=== PATIENT | male | born 1995 ===

== ENCOUNTER 2018-05-01 18:22 | Emergency (ER) | payer SELFPAY ==
[2018-05-01 18:32] VITALS: PULSE 90; RESP 18
[2018-05-01 19:17] LABS: BASO % 0.6 % (0.0-2.0); EOS % 0.7 % (0.0-4.0); HEMOGLOBIN 16.7 g/dL (12.0-18.0); LYMPH # 1.8 K/uL (1.0-4.3); LYMPH % 26.2 % (20.0-40.0); MEAN CORPUSCULAR HEMOGLOBIN 28.4 pg (27.0-31.0); MEAN CORPUSCULAR HGB CONC 33.4 g/dL (33.0-37.0); MONO # 0.5 K/uL (0.0-0.8); MONO % 7.7 % (0.0-10.0); NEUT # 4.4 K/uL (1.8-7.0); NEUT % 64.8 % (50.0-75.0); NRBC % 0.2 % (0.0-2.0); RBC 5.87 Mil/uL (4.40-5.90); RED CELL DISTRIBUTION WIDTH 13.9 % (11.5-14.5); WHITE BLOOD COUNT 6.7 K/uL (4.8-10.8)
--- NOTE | 2018-05-01 19:22 | C.PDOC ---
History Of Present Illness Patient is a 23 y/o male who presents to the ED for evaluation of weakness and numbness to the left side of his face that began in the morning. He has no associated headache, joint pain, fever, chills, rash, or other neurological def icits. Time Seen by Provider: 05/01/18 18:44 Chief Complaint (Nursing): Weakness/Neurological Deficit History Per: Patient History/Exam Limitations: no limitations Onset/Duration Of Symptoms: Hrs Current Symptoms Are (Timing): Still Present Fall Associated With With Symptoms: No Recent travel outside of the [place]: No Additional History Per: Patient Past Medical History Reviewed: Historical Data, Nursing Documentation, Vital Signs Vital Signs: Last Vital Signs Temp 97.3 F L 05/01/18 18:30 Pulse 90 05/01/18 18:30 Resp 18 05/01/18 18:30 BP 167/83 H 05/01/18 18:30 Pulse Ox 99 05/01/18 18:30 - Medical History PMH: No Chronic Diseases Surgical History: No Surg Hx Family History: States: Unknown Family Hx - Social History Hx Alcohol Use: Yes Hx Substance Use: No - Immunization History Hx Tetanus Toxoid Vaccination: No Hx Influenza Vaccination: No Hx Pneumococcal Vaccination: No Review Of Systems Constitutional: Negative for: Fever, Chills Musculoskeletal: Negative for: Other (joint pain) Skin: Negative for: Rash Neurological: Positive for: Numbness (left side of face ), Headache Physical Exam - Physical Exam Appears: Non-toxic, No Acute Distress Skin: Normal Color, Warm, Dry Head: Atraumatic, Normacephalic Eye(s): bilateral: Normal Inspection Oral Mucosa: Moist Neck: Supple Chest: Symmetrical, No Deformity, No Tenderness Cardiovascular: Rhythm Regular, No Murmur Respiratory: Normal Breath Sounds, No Rales, No Rhonchi, No Wheezing Extremity: Normal ROM, Capillary Refill (less than 2 seconds ) Neurological/Psych: Oriented x3, Normal Speech, Normal Cognition Other Neurological Findings: Facial Palsy (left side of face including forehead) ED Course And Treatment - Laboratory Results Result Diagrams: 05/01/18 19:14 05/01/18 19:14 Lab Interpretation: No Acute Changes O2 Sat by Pulse Oximetry: 99 (on RA) Pulse Ox Interpretation: Normal - CT Scan/US CT head Other Rad Studies (CT/US): Read By Radiologist, Radiology Report Reviewed CT/US Interpretation: EXAM: CT Head without Intravenous Contrast. CLINICAL HISTORY: Left sided weakness. TECHNIQUE: Axial computed tomography images of the head/brain without intravenous contrast. 0.00 mGy-cm. COMPARISON: None provided. FINDINGS: BRAIN. No acute intraparenchymal hemorrhage. No mass lesion. No CT evidence for acute territorial infarct. No midline shift or extra- axial collections. VENTRICLES: No hydrocephalus. ORBITS: The orbits are unremarkable. SINUSES AND MASTOIDS: The paranasal sinuses and mastoid air cells are clear. BONES: No fracture. SOFT TISSUES: Unremarkable. IMPRESSION: No acute intracranial abnormality. . Electronically signed on May 01, 2018 8:40:55 PM EST by: Yo Mujica M.D., SAV Certified By [facility]BR & [facility]. Fellowship Trained MRI and CT Specialist Progress Note: Bloodwork and CT Head ordered and reviewed. Valtrex PO and Prednisone PO given. Disposition Counseled Patient/Family Regarding: Studies Performed, Diagnosis, Need For Followup, Rx Given - Disposition Referrals: [facility] at [facility] [Outside] Disposition: HOME/ ROUTINE Disposition Time: 20:44 Condition: STABLE Prescriptions: Prednisone 50 mg PO DAILY #4 tablet valACYclovir [Valtrex] 500 mg PO BID #10 tab Instructions: Hurst's Palsy Forms: [facility] (French) - Clinical Impression Clinical Impression: Hurst's palsy
[2018-05-01 19:29] LABS: ALB/GLOB RATIO 1.4 (1.0-2.1); ALBUMIN 5.5 g/dL (3.5-5.0); ALT/SGPT 169 U/L (21-72); AST/SGOT 96 U/L (17-59); BLOOD UREA NITROGEN 15 mg/dL (9-20); CALCIUM 10.1 mg/dl (8.6-10.4); GFR NON-AFRICAN AMERICAN > 60
[2018-05-01 20:57] VITALS: BP 146/84; TEMP 98.8; O2SAT 100
--- NOTE | 2018-05-02 08:32 | CT ---
Date of service: 05/01/2018 PROCEDURE: CT HEAD WITHOUT CONTRAST. HISTORY: R/O Bleed COMPARISON: None available. TECHNIQUE: Axial computed tomography images were obtained through the head/brain without intravenous contrast. Radiation dose: Total exam DLP = 1130.87 mGy-cm. This CT exam was performed using one or more of the following dose reduction techniques: Automated exposure control, adjustment of the mA and/or kV according to patient size, and/or use of iterative reconstruction technique. FINDINGS: HEMORRHAGE: No intracranial hemorrhage. BRAIN: Mcfadden-white matter differentiation is preserved. There is no mass, mass effect or abnormal extra-axial fluid collection. There is no territorial infarction. The midline sagittal structures are normal. VENTRICLES: The ventricles are normal in size, shape and configuration. CALVARIUM: There is no calvarial fracture or extracranial soft tissue swelling. PARANASAL SINUSES: Predominantly clear. MASTOID AIR CELLS: Predominantly clear. OTHER FINDINGS: None. IMPRESSION: No acute intracranial abnormality. A preliminary report was provided by [employer].
== END 2018-05-01 20:57 | disposition home or self-care (01) ==
LOC: C.ER 18:22
DX: G51.0 Bell's palsy (principal)